=== PATIENT | male | born 1975 ===

== ENCOUNTER → 2019-01-27 | Emergency (ER) | payer OTHER ==
[~2019-01-27] VITALS: Ht 180.3 cm; Wt 102.1 kg
[~2019-01-27] MED LIST: LOTREL 5-10 MG1 CAP; LOTREL 5-20 MG1 CAP
== END | disposition home or self-care (01) ==
LOC: ER 19:19
DX: I10 Essential (primary) hypertension (principal)

== ENCOUNTER 2019-03-31 14:23 | Emergency (ER) | payer OTHER ==
[~2019-03-31] VITALS: Ht 180.3 cm; Wt 97.5 kg
== END 2019-03-31 19:27 | disposition home or self-care (01) ==
LOC: ER 14:23
DX: N20.0 Calculus of kidney (principal); R10.31 Right lower quadrant pain